=== PATIENT | female | born 1955 | race Caucasian/White ===

== ENCOUNTER → 2019-07-30 | Outpatient (REF) | payer OTHER ==
[2019-07-30 14:22] LABS: FOLATE 14.1 NG/ML (>5.4)
== END ==
LOC: M LAB REF 12:57
PROVIDERS: ATTEND Family Medicine
DX: R41.3 Other amnesia (principal)

== ENCOUNTER 2021-03-01 21:07 | Emergency (ER) | payer MEDICARE, OTHER ==
[~2021-03-01] VITALS: Ht 162.6 cm; Wt 80.1 kg
[2021-03-01] MEDS ORDERED: DONE10TA90 PO (21:28)
[2021-03-01] MEDS ORDERED: ROSU10TA6 PO (21:28)
[2021-03-01] MEDS ORDERED: SERT-141 PO (21:28)
[2021-03-01] MEDS ORDERED: SILVER NITRATE APPLICATOR TOP ONE (22:55)
[2021-03-01 23:31] VITALS: BP 130/65
== END 2021-03-01 23:33 | disposition home or self-care (01) ==
LOC: M ED 21:07
DX: S85.812A Laceration of other blood vessels at lower leg level, left leg, initial encounter (principal); W26.8XXA Contact with other sharp object(s), not elsewhere classified, initial encounter; Y92.9 Unspecified place or not applicable; Y93.E8 Activity, other personal hygiene; Y99.9 Unspecified external cause status; Z79.899 Other long term (current) drug therapy

== ENCOUNTER → 2021-07-29 | Outpatient (REF) | payer MEDICARE, OTHER ==
[~2021-07-29] MED LIST: DONE10TA90 PO; ROSU10TA6 PO; SERT-141 PO
[2021-07-31 16:17] LABS: % LABILE ALKALINE PHOSPHATASE 75.64 %
== END ==
LOC: M LAB REF 13:56
PROVIDERS: ATTEND Family Medicine
DX: R74.8 Abnormal levels of other serum enzymes (principal)

== ENCOUNTER → 2022-03-08 | Outpatient (CLI) | payer MEDICARE, BC, OTHER | LOC: M RAD 10:01 | PROVIDERS: ATTEND Family Medicine | DX: R74.8 Abnormal levels of other serum enzymes (principal) | CPT/HCPCS: 78306; A9503 ==

== ENCOUNTER → 2022-09-23 | Outpatient (CLI) | payer MEDICARE, BC, OTHER | LOC: M WHC 07:37 | PROVIDERS: ATTEND Family Medicine | DX: K82.4 Cholesterolosis of gallbladder (principal) ==

== ENCOUNTER 2023-10-30 15:02 | Emergency (ER) | payer BC, MEDICARE, OTHER ==
[~2023-10-30] VITALS: Ht 172.7 cm; Wt 80.1 kg
[2023-10-30] MEDS ORDERED: MEMA10TA19 (15:14)
[2023-10-30] MEDS ORDERED: GALA16CA (15:14)
[2023-10-30 15:38] LABS: BASO % 0.5 % (0.0-1.0); EOS # 0.1 10^3/uL (0.0-0.5); EOS % 0.7 % (0.0-3.0); HEMOGLOBIN 12.2 g/dl (12.0-15.5); LYMPH # 1.4 10^3/uL (1.5-5.0); LYMPH % 17.1 % (24.0-44.0); MEAN CORPUSCULAR HEMOGLOBIN 29.8 pg (27.0-33.0); MEAN CORPUSCULAR HGB CONC 33.9 g/dl (32.0-36.5); MEAN CORPUSCULAR VOLUME 87.8 fl (80.0-96.0); MONO # 0.4 10^3/uL (0.0-0.8); MONO % 5.1 % (2.0-8.0); NEUTROPHILS # 6.1 10^3/uL (1.5-8.5); NEUTROPHILS % 76.1 % (36.0-66.0); PLATELET COUNT, AUTOMATED 290 10^3/uL (150-450); WHITE BLOOD COUNT 8.1 10^3/uL (4.0-10.0)
[2023-10-30 15:57] LABS: ETHYL ALCOHOL (ETHANOL) 0.003 % (0.000-0.010)
[2023-10-30 15:58] LABS: CPK CREATINE PHOSPHOKINASE 161 U/L (34-145)
[2023-10-30 15:59] LABS: ALBUMIN 4.1 G/DL (3.2-5.2); ALKALINE PHOSPHATASE 151 U/L (46-116); ALT/SGPT 16 U/L (7.0-40); AST/SGOT 16 U/L (<34); BILIRUBIN,DIRECT 0.3 MG/DL (<0.4); BILIRUBIN,TOTAL 0.9 MG/DL (0.3-1.2); BLOOD UREA NITROGEN 14 MG/DL (9-23); CALCIUM LEVEL 8.8 MG/DL (8.3-10.6); CARBON DIOXIDE LEVEL 24 MMOL/L (20-31); CHLORIDE LEVEL 108 MMOL/L (98-107); CREATININE FOR GFR 0.77 MG/DL (0.55-1.30); GLOMERULAR FILTRATION RATE > 60.0 (>45); GLUCOSE, FASTING 151 MG/DL (74-106); POTASSIUM SERUM 3.6 MMOL/L (3.5-5.1); SALICYLATE LEVEL < 3.0 MG/DL (<30); SODIUM LEVEL 142 MMOL/L (136-145); TOTAL PROTEIN 6.6 G/DL (5.7-8.2)
[2023-10-30 16:01] LABS: THYROID STIMULATING HORMONE 2.119 uIU/ML (0.55-4.78)
[2023-10-30 18:26] VITALS: BP 113/69; TEMP 98; O2SAT 98
== END 2023-10-30 18:27 | disposition home or self-care (01) ==
LOC: M ED 15:02
DX: T50.991A Poisoning by other drugs, medicaments and biological substances, accidental (unintentional), initial encounter (principal); E78.5 Hyperlipidemia, unspecified; R94.31 Abnormal electrocardiogram [ECG] [EKG]; Z79.899 Other long term (current) drug therapy

== ENCOUNTER → 2024-05-16 | Outpatient (REF) | payer MEDICARE ==
[~2024-05-16] MED LIST changes: +GALA16CA; +MEMA10TA; -ROSU10TA6 PO; +ROSU10TA61 PO
== END ==
LOC: M SFHCDERM 10:31
PROVIDERS: ATTEND Physician Assistant
DX: T14.8XXA Other injury of unspecified body region, initial encounter (principal); D48.9 Neoplasm of uncertain behavior, unspecified